=== PATIENT | female | born 1975 ===

== ENCOUNTER 2017-12-21 06:12 | Inpatient (IN) | payer BC ==
[2017-12-21 06:28] VITALS: BMI 38.0
[2017-12-21] MEDS ORDERED: Midazolam 2 MG/2 ML VIAL ONE (07:27)
[2017-12-21] MEDS ORDERED: Propofol 10 mg/ml Inj (20 ML) ONE (07:27)
[2017-12-21] MEDS ORDERED: ePHEDrine 50 mg/ml Inj ONE ×2 (07:27→08:28)
[2017-12-21] MEDS ORDERED: Succinylcholine 200 mg/10 ml Inj IV ONE (07:29)
[2017-12-21] MEDS ORDERED: Rocuronium 10 mg/ml (5 ml) ONE ×2 (07:29→09:01)
[2017-12-21] MEDS ORDERED: Lidocaine 4% (Laryng-O-Jet) Kit MM ONE (07:32)
[2017-12-21] MEDS ORDERED: Phenylephrine 10 mg/ml Inj ONE (07:32)
[2017-12-21] MEDS ORDERED: Lactated Ringer's 1,000 ML IV ONE ×2 (07:55→08:05)
[2017-12-21] MEDS ORDERED: Dexamethasone 4 mg/1 ml ONE (08:19)
[2017-12-21] MEDS ORDERED: Neostigmine 1:1000 (1 mg/ml) Inj ONE (08:20)
[2017-12-21] MEDS: Bupivacaine HCl 0.25% PF (30 ml) Inj ONE ×2 (08:23→08:49)
[2017-12-21] MEDS ORDERED: Desflurane Inhalation Anesthetic Liq (240 ml) ONE (10:08)
[2017-12-21] MEDS: Lactated Ringer's 1,000 ML IV SCH ×2 (11:15→19:35)
[2017-12-21] MEDS ORDERED: Naloxone 0.4 mg/ml Inj (Adult) IVP PRN (11:20)
[2017-12-21] MEDS: HYDROmorphone 0.5 mg/0.5 ml ISec IVP PRN ×3 (11:45→12:30)
[2017-12-21] MEDS ORDERED: HYDROmorphone 1 mg/ml ISec ONE ×3 (11:47→12:32)
[2017-12-21] MEDS ORDERED: Clindamycin 600mg/50ml NS 600 MG/50 ML BAG IVPB ONE (17:00)
[2017-12-21] MEDS ORDERED: BSS 15 ML SOL IR ONE (18:54)
--- NOTE | 2017-12-21 19:23 | CP.PCM.PN ---
Subjective - Date & Time of Evaluation Date of Evaluation: 12/21/17 Time of Evaluation: 17:00 - Subjective Subjective: Anesthesiology Note: Undesigned was called to evaluate the this patient complaining of itchy [ pica ] of the left eye. She underwent robotic hysterectomy this morning.On examination both eyes are not edematous, no inflammation over the sclera, the corneas are clear. Assessment : Possible Irritation of the left eye from tape. Plan : Instill 3 drops of balance salt solution to the left eye every hour while awake. May consult Net C Developer if symptom gets worse Saniya Monte MD Objective - Vital Signs/Intake and Output Vital Signs (last 24 hours): Temp Pulse Resp BP Pulse Ox 98 F 98 H 18 140/77 98 12/21/17 16:06 12/21/17 16:06 12/21/17 17:10 12/21/17 16:06 12/21/17 16:06 Intake and Output: 12/21/17 12/22/17 18:59 06:59 Intake Total 3090 Output Total 750 Balance 2340 - Medications Medications: Current Medications Hydromorphone HCl (Dilaudid 0.2 Mg/Ml Last Model Department Supervisor) 0 mg IV PRN PRN; Protocol PRN Reason: Pain, moderate (4-7) Last Admin: 12/21/17 12:48 Dose: 0 mg Lactated Ringer's (Lactated Ringer's) 1,000 mls @ 125 mls/hr IV .Q8H DACIA Last Admin: 12/21/17 11:15 Dose: 200 mls Ketorolac Tromethamine (Toradol) 30 mg IVP Q6 PRN PRN Reason: Pain, moderate (4-7) Naloxone HCl (Narcan) 0.1 mg IVP Q2M PRN PRN Reason: Opiate reversal
[2017-12-22] MEDS ORDERED: BSS 15 ML SOL IR PRN (05:14)
[2017-12-22] MEDS: Lactated Ringer's 1,000 ML IV SCH (05:23)
[2017-12-22 07:02] LABS: HEMOGLOBIN 10.6 g/dL (12.0-16.0); MEAN CELL VOLUME 81.4 fl (81.0-99.0); MEAN CORPUSCULAR HEMOGLOBIN 27.3 pg (27.0-31.0); MEAN CORPUSCULAR HGB CONC 33.5 g/dL (33.0-37.0); RBC 3.9 Mil/uL (3.80-5.20); RED CELL DISTRIBUTION WIDTH 16.1 % (11.5-14.5); WHITE BLOOD COUNT 10.7 K/uL (4.8-10.8)
[2017-12-22 08:14] VITALS: BP 126/76; RESP 18; TEMP 98.4
--- NOTE | 2017-12-22 08:45 | OP ---
PROCEDURE DATE: 12/21/17 PREOPERATIVE DIAGNOSIS: Symptomatic fibroid uterus. POSTOPERATIVE DIAGNOSIS: Symptomatic fibroid uterus. PROCEDURES: Robotic assisted hysterectomy, bilateral salpingo-oophorectomy, cystoscopy with stents. SURGEON: Dustin Paige MD GUM MACHINE OPERATOR: Dr. Shira Wells. She was helpful in creating exposure, obtaining hemostasis, irrigation, and extraction of the specimen and closure of the patient. The procedure would not have been possible without her assistance. ESTIMATED BLOOD LOSS: 200 mL, Alonso catheter put out approximately 300 mL of clear urine. INTRAVENOUS FLUIDS: The patient received 2000 mL of D5 LR intraoperatively. COMPLICATIONS: There were no complications. COMMENTS: Preoperatively, the patient was counseled regarding ovarian preservation after discussing the risks, benefits, and alternatives to ovarian extraction. The patient wanted to remove ovaries due to family history. The patient wishes were respected. She was counseled appropriately. She was informed of all the risks, benefits, and alternatives, and she was advised that she will probably need replacement therapy. DESCRIPTION OF PROCEDURE: After informed consent was obtained, the patient was taken to the operating room where she was given general anesthesia. She was then prepped and draped in the normal sterile fashion. Attention was then turned to the urethra. Cystoscope was inserted in the bladder. The ureter orifices were identified, and the right ureter orifice was stented, and 5 mL of ICG green was injected. Similar procedure was performed on the left. The bladder was surveyed with the findings noted above. The cystoscope was then removed from the cervix. Attention was then turned to the vagina where a speculum was inserted. The cervix was identified and grasped with a single-tooth tenaculum. Cervix was then gently dilated, and a Vcare uterine manipulator was then inserted into the uterine cavity uterus. .A Alonso catheter was inserted into the bladder to monitor the patient's urinary output. Attention was then turned to the abdomen. Approximately 10 cm superior to the umbilicus, an 8 mm incision was made. A Veress needle was inserted into the abdominal cavity. Placement was confirmed with a fluid-filled syringe. An 8-mm robotic port was then introduced into the abdominal cavity and placement was confirmed with a laparoscope. Upon entry to the abdomen, we noted some adhesions. The patient had history of 4 previous deliveries. Attention was then turned approximately 5 cm superior to the right anterior iliac crest. Marcaine was infused and 8-mm incision was made, and the robotic port was introduced under direct visualization. The similar procedure was performed on the left. Attention was then turned to approximately 10 cm right lateral to the umbilicus. An 8 mm incision was made. The robotic port was introduced under direct visualization. Attention was then turned to the left side where in a similar fashion approximately 10 cm left and lateral 5 mm incision was made, and an front end assistant port was introduced into the abdominal cavity. Laparoscopic scissor was then inserted into the abdomen, and the adhesions were dissected off the anterior abdominal wall using both sharp and blunt dissection, and hemostasis was noted. The patient was then placed in steep Trendelenburg. The table was lowered. The uterus had a prominent fundal myoma, approximately 7 cm in size. Attention was then turned to the infundibulopelvic ligament, the peritoneum was scored. A window was created. Firefly technology was activated. The ureter was localized. The infundibulopelvic ligament was serially coagulated and transected. A similar procedure was performed on the right. Attention was then turned to the right round ligament, which was serially coagulated and transected with the scissor. The anterior vesicouterine peritoneum was then undermined with PK dissector down to the level of the VCare cup anteriorly. There were adhesions noted from her previous section. Using blunt dissection, scissor was used to mobilize the bladder downward. Attention was then turned to the posterior leaf of the broad ligament. It was coagulated and transected with the scissors. Posterior leaf of the broad ligament was then opened and dissected downward to the level of Vcare cup posteriorly. The uterine arteries were then skeletonized, serially coagulated, and then transected with the scissors. Again, Firefly technology was used. The ureter was localized inferiorly. Attention was then turned to the right side of the abdomen where the infundibulopelvic ligament was identified. The peritoneum was scored with the scissor. A pedicle was made, and the ureter was identified inferiorly using the Firefly. The pedicle was then serially coagulated and transected with the scissor. Attention was then turned to the round ligament which in a similar fashion was serially coagulated and transected with the scissors. The vesicouterine peritoneum was then identified and opened up using both sharp and blunt dissection. The posterior leaf of the broad ligament was undermined with the PK and scored with the scissors. The uterine arteries were identified and skeletonized and serially coagulated and transected with scissor. The Vcare cup was then identified anteriorly, posteriorly, and laterally. The uterus and cervix were then amputated from the vagina using the scissor. The specimen was then extracted vaginally. The uterine cuff was closed with 2-0 Vicryl and barbed suture in a running fashion. The abdomen was then copiously irrigated. The irrigant was removed with a suction device. Hemostasis was noted. All instruments were then removed from the abdomen. The robot was undocked. All ports were removed from the abdomen. The skin was closed with 3-0 Biosyn and Dermabond. All sponge, lap, needle, and instrument counts were correct x2, and the patient was taken to the recovery room in awake and stable condition. Dustin Paige MD
[2017-12-22] MEDS ORDERED: Oxycodone/Acetaminophen 5/325 mg Tab PO PRN (11:02)
--- NOTE | 2017-12-22 11:07 | CP.PCM.PN ---
Subjective - Date & Time of Evaluation Date of Evaluation: 12/22/17 Time of Evaluation: 11:00 - Subjective Subjective: Hospitalist note...asked to see pt for discharge She feels that her eyes feel beter. She felt blurriness yesterday. sees clearly now. S Objective - Vital Signs/Intake and Output Vital Signs (last 24 hours): Temp Pulse Resp BP Pulse Ox 98.4 F 77 18 126/76 99 12/22/17 08:14 12/22/17 08:14 12/22/17 08:14 12/22/17 08:14 12/22/17 08:14 Intake and Output: 12/22/17 12/22/17 06:59 18:59 Intake Total 1570 Output Total 1200 Balance 370 - Medications Medications: Current Medications Lactated Ringer's (Lactated Ringer's) 1,000 mls @ 125 mls/hr IV .Q8H DACIA Last Admin: 12/22/17 05:23 Dose: 125 mls/hr Ibuprofen (Motrin Tab) 600 mg PO Q6 PRN PRN Reason: Pain, Mild (1-3) Ketorolac Tromethamine (Toradol) 30 mg IVP Q6 PRN PRN Reason: Pain, moderate (4-7) Naloxone HCl (Narcan) 0.1 mg IVP Q2M PRN PRN Reason: Opiate reversal Oxycodone/Acetaminophen (Percocet 5/325 Mg Tab) 1 tab PO Q4 PRN PRN Reason: Pain, moderate (4-7) Stop: 12/25/17 11:03 Ringer's Solution (Bss 15 Ml) 15 ml IR ONCE PRN PRN Reason: eye irritation Last Admin: 12/22/17 05:27 Dose: 15 ml - Labs Labs: 12/22/17 06:40 - Head Exam Head Exam: NORMAL INSPECTION - Respiratory Exam Respiratory Exam: NORMAL BREATHING PATTERN - Cardiovascular Exam Cardiovascular Exam: REGULAR RHYTHM - GI/Abdominal Exam GI & Abdominal Exam: Normal Bowel Sounds Additional comments: Incisions covered and clean Assessment and Plan - Assessment and Plan (Free Text) Assessment: S/P hysterectomy (robotic) - stable Plan: OOB. After eating, ambulating and urinating may be discharged...f/u1-2w
--- NOTE | 2017-12-22 11:09 | CP.PCM.DIS ---
Provider - Provider Date of Admission: 12/21/17 12:21 Attending physician: Dustin Paige MD Primary care physician: Jackie York MD Time Spent in preparation of Discharge (in minutes): 10 Hospital Course - Lab Results Lab Results: Most Recent Lab Values WBC 10.7 K/uL (4.8-10.8) 12/22/17 06:40 RBC 3.90 Mil/uL (3.80-5.20) 12/22/17 06:40 Hgb 10.6 g/dL (12.0-16.0) L 12/22/17 06:40 Hct 31.7 % (34.0-47.0) L 12/22/17 06:40 MCV 81.4 fl (81.0-99.0) 12/22/17 06:40 MCH 27.3 pg (27.0-31.0) 12/22/17 06:40 MCHC 33.5 g/dL (33.0-37.0) 12/22/17 06:40 RDW 16.1 % (11.5-14.5) H 12/22/17 06:40 Plt Count 312 K/uL (130-400) 12/22/17 06:40 Blood Type O POSITIVE 12/21/17 07:09 Blood Type Confirm O POSITIVE 12/21/17 09:54 Antibody Screen Negative 12/21/17 07:09 BBK History Checked No verified bt 12/21/17 07:09 Discharge Exam - Head Exam Head Exam: NORMAL INSPECTION - Respiratory Exam Respiratory Exam: NORMAL BREATHING PATTERN - Cardiovascular Exam Cardiovascular Exam: REGULAR RHYTHM - GI/Abdominal Exam GI & Abdominal Exam: Unremarkable Discharge Plan - Follow Up Plan Condition: GOOD Disposition: HOME/ ROUTINE Referrals: Jackie York [Primary Care Provider] -
[2017-12-22 12:47] VITALS: PULSE 84; O2SAT 97
== END 2017-12-22 14:33 | disposition home or self-care (01) | DRG 743 ==
LOC: H.OPSURG 06:12 → H.PEDS 12:21
PROVIDERS: ADMIT Obstetrics & Gynecology Gynecology; ATTEND Obstetrics & Gynecology Gynecology
PROC: 0UT7FZZ Resection of Bilateral Fallopian Tubes, Via Natural or Artificial Opening With Percutaneous Endoscopic Assistance (ICD-10-PCS; 2017-12-21)
PROC: 8E0W4CZ Robotic Assisted Procedure of Trunk Region, Percutaneous Endoscopic Approach (ICD-10-PCS; 2017-12-21)
PROC: 0TJB8ZZ Inspection of Bladder, Via Natural or Artificial Opening Endoscopic (ICD-10-PCS; 2017-12-21)
PROC: 0UT9FZZ Resection of Uterus, Via Natural or Artificial Opening With Percutaneous Endoscopic Assistance (ICD-10-PCS; principal; 2017-12-21 07:45)
PROC: 0UT2FZZ Resection of Bilateral Ovaries, Via Natural or Artificial Opening With Percutaneous Endoscopic Assistance (ICD-10-PCS; 2017-12-21 07:45)
DX: D25.9 Leiomyoma of uterus, unspecified (principal); I10 Essential (primary) hypertension; K66.0 Peritoneal adhesions (postprocedural) (postinfection)